=== PATIENT | female | born 1995 | race Caucasian/White ===

== ENCOUNTER 2025-02-18 18:05 | Observation (INO) | payer BC ==
[2025-02-18] MEDS ORDERED: Acetaminophen/Codeine 30-300mg Tablet PO PRN (19:21)
[2025-02-18 19:42] LABS: #Basophils 0.04 10x3/uL (0.0-0.2); #Eosinophils Less than 0.03 10x3/uL (0.0-0.5); #Monocytes 0.33 10x3/uL (0.0-1.1); #Neutrophils 5.01 10x3/uL (1.5-8.4); %Basophils 0.6 % (0.0-2.0); %Eosinophils 0.2 % (0.0-6.0); %Lymphocytes 14.8 % (18.0-47.0); %Monocytes 5.2 % (0.0-10.0); %Neutrophils 79.0 % (40.0-75.0); Hematocrit 37.2 % (34.9-44.5); Hemoglobin 12.0 g/dL (12.0-15.5); Mean Corpuscular Hemoglobin 29.4 pg (27.0-33.0); Mean Corpuscular Volume 91.2 fL (81.6-98.3); Platelet Count 207 10x3/uL (150-450); Red Blood Cell (RBC) Count 4.08 10x6/uL (3.90-5.03); White Blood Cell (WBC) Count 6.34 10x3/uL (3.5-10.5)
[2025-02-18 19:57] LABS: ALT (SGPT) 11 U/L (Less than 34); AST (SGOT) 18 U/L (11-34); Albumin 4.3 g/dL (3.1-4.5); Alkaline Phosphatase 34 U/L (40-110); Anion Gap 11 mmol/L (10-20); BUN (Urea Nitrogen) 10 mg/dL (7.0-18.7); Bilirubin, Total 0.3 mg/dL (0.3-1.2); Calc. Creatinine Clearance 0 mL/min (70-130); Calcium 9.0 mg/dL (7.8-10.44); Carbon Dioxide 24 mmol/L (22-29); Chloride 109 mmol/L (98-107); Globulin 3.2 g/dL (2.4-3.5); Glucose 100 mg/dL (70-105); Potassium 4.1 mmol/L (3.5-5.1); Sodium 140 mmol/L (136-145)
[2025-02-18 22:09] VITALS: BMI 17.2
[2025-02-18] MEDS: Ketorolac Tromethamine 30 MG (1 mL) VIAL IVP PRN (23:45)
[2025-02-18] MEDS: LevoFLOXacin 500 mg/D5W 500 MG in Premix 1 BAG IVPB SCH (23:55)
[2025-02-19 06:47] LABS: Hematocrit 35.7 % (34.9-44.5); Hemoglobin 11.6 g/dL (12.0-15.5); Mean Corpuscular Hemoglobin 29.9 pg (27.0-33.0); Mean Corpuscular Volume 92.0 fL (81.6-98.3); Platelet Count 198 10x3/uL (150-450); Red Blood Cell (RBC) Count 3.88 10x6/uL (3.90-5.03); White Blood Cell (WBC) Count 7.96 10x3/uL (3.5-10.5)
[2025-02-19] MEDS ORDERED: Bupivacaine/Epinephrine 0.25% 30 ML VIAL ONE (10:46)
[2025-02-19] MEDS ORDERED: SUGAMMADEX SODIUM 200 MG/2 ML VIAL ONE (10:55)
[2025-02-19] MEDS ORDERED: PROPOFOL 20 ML ONE (10:55)
[2025-02-19] MEDS ORDERED: Rocuronium Bromide 10 MG/ML (10ML VIAL) ONE (10:55)
[2025-02-19] MEDS ORDERED: Ondansetron PF 4 MG/2 ML Vial ONE (10:55)
[2025-02-19] MEDS ORDERED: Ketorolac Tromethamine 30 MG (1 mL) VIAL ONE (11:09)
[2025-02-19] MEDS ORDERED: PHENYLEPHRINE-NS 100 MCG/ML 10 ML SYRINGE ONE (12:10)
[2025-02-19] MEDS ORDERED: Bupivacaine HCl 0.5%/Epinephrine 1:200,000/PF 30 ml Vial ONE (12:25)
[2025-02-19 16:44] VITALS: BP 105/65; TEMP 97.3
== END 2025-02-19 16:40 | disposition home or self-care (01) ==
LOC: CSHPED 18:05 → INTOOBSV 18:05
PROVIDERS: ADMIT Family Medicine; ATTEND Family Medicine
PROC: 0UPD4HZ Removal of Contraceptive Device from Uterus and Cervix, Percutaneous Endoscopic Approach (ICD-10-PCS; principal; 2025-02-18)
DX: T83.89XA Other specified complication of genitourinary prosthetic devices, implants and grafts, initial encounter (principal); Z98.890 Other specified postprocedural states; Y83.1 Surgical operation with implant of artificial internal device as the cause of abnormal reaction of the patient, or of later complication, without mention of misadventure at the time of the procedure
CPT/HCPCS: 36415; 74018; 74176; 80053; 85025; 85027; 86850; 86900; 86901; G0378; J1100; J1885; J1956; J2250; J2405; J2704; J3010